=== PATIENT | female | born 1970 | race Caucasian/White ===

== ENCOUNTER 2018-11-09 19:00 | Outpatient (CLI) | payer BC | END 2018-11-09 23:59 | disposition home or self-care (01) | LOC: D.MAMMO 19:00 | PROVIDERS: ATTEND Family Medicine | DX: Z12.31 Encounter for screening mammogram for malignant neoplasm of breast (principal) ==

== ENCOUNTER → 2019-03-07 15:33 | Outpatient (CLI) | payer BC | END | disposition home or self-care (01) | LOC: D.MRI 15:33 | PROVIDERS: ATTEND Orthopaedic Surgery | DX: M43.16 Spondylolisthesis, lumbar region (principal) ==